=== PATIENT | female | born 1985 | race African-American/Black ===

== ENCOUNTER 2017-05-22 09:59 | Emergency (ER) | payer OTHER, MEDICAID ==
[~2017-05-22] VITALS: Ht 175.3 cm; Wt 73.0 kg
[~2017-05-22 09:59] MED LIST: ACETAMINOPHEN; ALBUTEROL HHN; DILAUDID; HYDROCODONE; VALIUM
[2017-05-22] MEDS ORDERED: KETOROLAC 60MG/2ML VIAL IM ONE (10:45)
[2017-05-22] MEDS ORDERED: SODIUM CHLORIDE 0.9% 1,000 ML IV ONE (10:54)
[2017-05-22] MEDS ORDERED: MORPHINE SULFATE 4 MG/ML CPJ (NOT FOR IM USE) IV STA (10:54)
[2017-05-22] MEDS ORDERED: ONDANSETRON HCL 4MG/2ML VIAL IV STA (10:54)
[2017-05-22] MEDS ORDERED: KETOROLAC 30MG/ML VIAL IV STA (10:54)
[2017-05-22 11:23] LABS: BASOPHILS % 0.2 % (0.0-2.0); EOSINOPHILS % 1.9 % (0.0-5.0); HEMOGLOBIN. 14.1 g/dL (12.0-16.0); LYMPHOCYTES % 9.4 % (20.0-50.0); MEAN CORPUSCULAR HEMOGLOBIN 30.6 pg (28.0-32.0); MEAN CORPUSCULAR VOLUME 93.1 fL (81.0-99.0); MEAN PLATELET VOLUME 9.2 fl (7.4-10.4); NEUTROPHILS % 84.5 % (40.0-76.0); PLATELET 228 x1000/uL (130-400); RED BLOOD CELL COUNT 4.62 mill/uL (4.2-5.4); RED CELL DISTRIBUTION WIDTH 13.5 % (11.6-14.6)
[2017-05-22 11:28] LABS: INR 1.1; PROTHROMBIN TIME 11.5 sec (9.4-11.6)
[2017-05-22 11:30] LABS: HCG SCREEN NEGATIVE
[2017-05-22 11:37] LABS: CHLORIDE 107 mEq/L (98-107)
[2017-05-22 12:17] VITALS: BP 117/77
== END 2017-05-22 14:18 | disposition left against medical advice (07) ==
LOC: ER 13:52
DX: R10.32 Left lower quadrant pain (principal); R11.2 Nausea with vomiting, unspecified; J45.909 Unspecified asthma, uncomplicated; F41.9 Anxiety disorder, unspecified; F12.10 Cannabis abuse, uncomplicated; Z88.5 Allergy status to narcotic agent
CPT/HCPCS: 36415; 80053; 83690; 84703; 85025; 85610; 86850; 86900; 86901; 93005; 96361; 96374; 96375; 99285; J1885; J2405; J7030; J2270

== ENCOUNTER 2021-03-12 03:09 | Emergency (ER) | payer MEDICAID, OTHER ==
[~2021-03-12] VITALS: Ht 175.3 cm; Wt 73.0 kg
[2021-03-12] MEDS ORDERED: KETOROLAC 60MG/2ML VIAL IM STA (03:23)
[2021-03-12 03:39] LABS: CLARITY URINE CLOUDY (CLEAR); COLOR URINE YELLOW (YELLOW); KETONES URINE TRACE (NEGATIVE); LEUKOCYTE ESTERASE URINE NEGATIVE (NEGATIVE); NITRITE URINE NEGATIVE (NEGATIVE); OCCULT BLOOD URINE NEGATIVE (NEGATIVE); PH URINE 5.5 (4.5-8.0); PROTEIN URINE 1+ (NEGATIVE); SPECIFIC GRAVITY URINE 1.039 (1.005-1.030); UROBILINOGEN URINE 0.2 E.U./dL (0.2-1.0)
[2021-03-12] MEDS ORDERED: IBUP-2030 MT ×3 (04:01→04:02)
[2021-03-12] MEDS ORDERED: ONDA4TAB11 PO ×3 (04:01→04:02)
[2021-03-12 05:02] VITALS: BP 131/79
== END 2021-03-12 05:02 | disposition home or self-care (01) ==
LOC: ER 03:09
DX: U07.1 COVID-19 (principal); R10.9 Unspecified abdominal pain; J45.909 Unspecified asthma, uncomplicated; Z88.6 Allergy status to analgesic agent
CPT/HCPCS: 81003; 96372; 99283; C9803; J1885; U0003; U0005

== ENCOUNTER 2021-07-24 10:47 | Emergency (ER) | payer MEDICARE, OTHER, SELFPAY ==
[~2021-07-24] VITALS: Ht 175.3 cm; Wt 73.0 kg
[~2021-07-24 10:47] MED LIST changes: +IBUP-2030 MT; +ONDA4TAB11 PO
[2021-07-24] MEDS ORDERED: IBUPROFEN 400MG TABLET PO ONE (11:30)
[2021-07-24] MEDS ORDERED: T3 PO (13:37)
[2021-07-24] MEDS ORDERED: BO1 TP (13:37)
[2021-07-24] MEDS ORDERED: SULF1TAB48 PO (13:37)
[2021-07-24] MEDS ORDERED: CEPH500T PO (13:37)
[2021-07-24 14:00] VITALS: BP 105/81
== END 2021-07-24 14:00 | disposition home or self-care (01) ==
LOC: ER 10:47
DX: S80.212A Abrasion, left knee, initial encounter (principal); S30.810A Abrasion of lower back and pelvis, initial encounter; L03.116 Cellulitis of left lower limb; M79.18 Myalgia, other site; J45.909 Unspecified asthma, uncomplicated; F12.10 Cannabis abuse, uncomplicated; Z88.5 Allergy status to narcotic agent; V87.8XXA Person injured in other specified noncollision transport accidents involving motor vehicle (traffic), initial encounter; Y93.89 Activity, other specified; Y92.488 Other paved roadways as the place of occurrence of the external cause
CPT/HCPCS: 73502; 73560; 99284

== ENCOUNTER 2021-09-29 13:15 | Emergency (ER) | payer MEDICAID, MEDICARE ==
[~2021-09-29] VITALS: Ht 175.3 cm; Wt 73.0 kg
[~2021-09-29 13:15] MED LIST changes: +BO1 TP; +CEPH500T PO; +SULF1TAB48 PO; +T3 PO
[2021-09-29 13:34] VITALS: BP 105/59
[2021-09-29 17:50] LABS: BASOPHILS % 0.5 % (0.0-2.0); EOSINOPHILS % 0.1 % (0.0-5.0); HEMATOCRIT. 43.8 % (36.0-48.0); HEMOGLOBIN. 14.3 g/dL (12.0-16.0); LYMPHOCYTES % 28.4 % (20.0-50.0); MEAN CORPUSCULAR HEMOGLOBIN 30.7 pg (28.0-32.0); MEAN CORPUSCULAR VOLUME 94.3 fL (81.0-99.0); MEAN PLATELET VOLUME 8.9 fl (7.4-10.4); MONOCYTES % 5.8 % (2.0-8.0); NEUTROPHILS % 65.2 % (40.0-76.0); PLATELET 292 x1000/uL (130-400); RED BLOOD CELL COUNT 4.65 mill/uL (4.2-5.4)
[2021-09-29 18:04] LABS: CHLORIDE 107 mEq/L (98-107)
[2021-09-29] MEDS ORDERED: KETOROLAC 15MG/ML VIAL IV ONE (18:15)
[2021-09-29] MEDS ORDERED: SODIUM CHLORIDE 0.9% 1,000 ML IV ONE (18:15)
[2021-09-29 18:16] LABS: B-HCG QUANTITATIVE < 1 mIU/mL (<3)
[2021-09-29] MEDS ORDERED: POTASSIUM CHLORIDE 20MEQ TABLET SR PO NR (19:26)
[2021-09-29 20:59] LABS: CLARITY URINE CLOUDY (CLEAR); COLOR URINE ORANGE (YELLOW); KETONES URINE 3+ (NEGATIVE); LEUKOCYTE ESTERASE URINE 1+ (NEGATIVE); NITRITE URINE NEGATIVE (NEGATIVE); OCCULT BLOOD URINE 3+ (NEGATIVE); PH URINE 5.5 (4.5-8.0); PROTEIN URINE 2+ (NEGATIVE); SPECIFIC GRAVITY URINE 1.037 (1.005-1.030)
[2021-09-29] MEDS ORDERED: NAPR-681 MT (21:18)
[2021-09-29] MEDS ORDERED: CEPH500C2 MT (21:18)
[2021-09-29] MEDS ORDERED: HYDR-4009 MT (21:39)
== END 2021-09-29 21:44 | disposition home or self-care (01) ==
LOC: ER 13:15
DX: N39.0 Urinary tract infection, site not specified (principal); N80.9 Endometriosis, unspecified; J45.909 Unspecified asthma, uncomplicated; F12.10 Cannabis abuse, uncomplicated; Z79.899 Other long term (current) drug therapy
CPT/HCPCS: 36415; 76856; 76857; 80053; 81003; 81025; 84702; 85025; 96361; 96374; 99284; J1885; J7030

== ENCOUNTER 2022-06-17 13:54 | Emergency (ER) | payer MEDICAID ==
[~2022-06-17] VITALS: Ht 175.3 cm; Wt 73.0 kg
[~2022-06-17 13:54] MED LIST changes: +CEPH500C2 MT; +HYDR-4009 MT; +NAPR-681 MT
[2022-06-17 14:59] LABS: BASOPHILS % 0.6 % (0.0-2.0); HEMATOCRIT. 40.1 % (36.0-48.0); HEMOGLOBIN. 13.4 g/dL (12.0-16.0); LYMPHOCYTES % 32.8 % (20.0-50.0); MEAN CORPUSCULAR HEMOGLOBIN 31.1 pg (28.0-32.0); MEAN CORPUSCULAR VOLUME 93.3 fL (81.0-99.0); MEAN PLATELET VOLUME 9.9 fl (7.4-10.4); MONOCYTES % 6.2 % (2.0-8.0); NEUTROPHILS % 55.4 % (40.0-76.0); PLATELET 231 x1000/uL (130-400); RED CELL DISTRIBUTION WIDTH 13.4 % (11.6-14.6)
[2022-06-17 15:02] LABS: CHLORIDE 109 mEq/L (98-107)
[2022-06-17] MEDS ORDERED: ONDANSETRON HCL 4MG/2ML INJ IM STA (15:48)
[2022-06-17] MEDS ORDERED: KETOROLAC 60MG/2ML VIAL IM STA (15:48)
[2022-06-17] MEDS ORDERED: NAPR-681 PO (17:47)
[2022-06-17] MEDS ORDERED: ONDA4TAB50 PO (17:47)
[2022-06-17 18:14] LABS: CLARITY URINE CLOUDY (CLEAR); COLOR URINE DARK YELLOW (YELLOW); KETONES URINE NEGATIVE (NEGATIVE); LEUKOCYTE ESTERASE URINE NEGATIVE (NEGATIVE); NITRITE URINE NEGATIVE (NEGATIVE); OCCULT BLOOD URINE NEGATIVE (NEGATIVE); PH URINE 5.5 (4.5-8.0); PROTEIN URINE NEGATIVE (NEGATIVE); SPECIFIC GRAVITY URINE 1.025 (1.005-1.030)
[2022-06-17 18:25] VITALS: BP 118/66
== END 2022-06-17 18:34 | disposition home or self-care (01) ==
LOC: ER 14:09
DX: M25.562 Pain in left knee (principal); K52.9 Noninfective gastroenteritis and colitis, unspecified; F12.10 Cannabis abuse, uncomplicated; J45.909 Unspecified asthma, uncomplicated
CPT/HCPCS: 36415; 73562; 80053; 81003; 81025; 83690; 85025; 93971; 96372; 99285; J1885; J2405